=== PATIENT | female | born 1985 | race African-American/Black ===

== ENCOUNTER 2024-09-15 05:56 | Observation (INO) | payer BC, OTHER ==
[2024-09-14 10:17] VITALS: BMI 25.4
[2024-09-15 06:34] LABS: Hematocrit 31.6 % (34.9-44.5); Hemoglobin 10.7 g/dL (12.0-15.5); Mean Corpuscular HGB CONC 33.9 g/dL (32.0-36.0); Mean Corpuscular Hemoglobin 29.2 pg (27.0-33.0); Mean Corpuscular Volume 86.3 fL (81.6-98.3); Mean Platelet Volume 11.7 fL (7.4-10.4); Platelet Count 298 10x3/uL (150-450); RBC Distribution Width 12.8 % (11.5-14.5); Red Blood Cell (RBC) Count 3.66 10x6/uL (3.90-5.03); White Blood Cell (WBC) Count 9.1 10x3/uL (3.5-10.5)
[2024-09-15 06:43] LABS: BHCG - Serum Negative (NEGATIVE); Pregs Control Background? CLEAR/WHITE (CLR/WHITE); Pregs Control Bar Appear? YES (CONTROL BAR)
[2024-09-15] MEDS ORDERED: Bupivacaine HCl 0.5%/Epinephrine 1:200,000/PF 30 ml Vial ONE (06:55)
[2024-09-15] MEDS ORDERED: CEFAZOLIN 2 GM VIAL ONE (06:56)
[2024-09-15] MEDS ORDERED: PROPOFOL 20 ML ONE (07:09)
[2024-09-15] MEDS ORDERED: Rocuronium Bromide 10 MG/ML (10ML VIAL) ONE (07:09)
[2024-09-15] MEDS ORDERED: fentaNYL 50 mcg/mL 1 mL Vial ONE ×3 (07:09→10:10)
[2024-09-15] MEDS ORDERED: Lidocaine 1% PF 5 ML VIAL ONE (07:09)
[2024-09-15] MEDS ORDERED: Midazolam HCl 2 mg/2 ml Vial ONE (07:17)
[2024-09-15] MEDS ORDERED: Esmolol 100 MG/10 ML VIAL ONE (07:40)
[2024-09-15] MEDS ORDERED: Dexamethasone 20 MG/5 ML VIAL ONE (07:46)
[2024-09-15] MEDS ORDERED: Ondansetron PF 4 MG/2 ML Vial ONE (07:46)
[2024-09-15] MEDS ORDERED: Dexmedetomidine 200 MCG/2 ML VIAL ONE ×2 (08:09)
[2024-09-15] MEDS ORDERED: SUGAMMADEX SODIUM 200 MG/2 ML VIAL ONE (09:09)
[2024-09-15] MEDS ORDERED: Ondansetron PF 4 MG/2 ML Vial IVP PRN (10:51)
[2024-09-15] MEDS ORDERED: Simethicone Chewable 80 MG TAB PO PRN (10:51)
[2024-09-15] MEDS: Lactated Ringer's 1,000 ML IV SCH (11:19)
[2024-09-15] MEDS: Morphine 4 MG/ML VIAL SLOW IVP PRN (11:19)
[2024-09-15] MEDS: Ketorolac Tromethamine 30 MG (1 mL) VIAL IVP SCH (11:21)
[2024-09-15] MEDS: CEFAZOLIN 2 GM in Sodium Chloride 0.9% 100 ML IVPB SCH (15:35)
[2024-09-15] MEDS: HYDROcodone/Acetaminophen 7.5/325 mg Tablet PO PRN (15:35)
[2024-09-16 08:35] VITALS: BP 120/71; TEMP 98.1
== END 2024-09-16 09:50 | disposition home or self-care (01) ==
LOC: CSHSDC 05:56 → CSHPED 11:06
PROVIDERS: ADMIT Obstetrics & Gynecology; ATTEND Obstetrics & Gynecology
PROC: 0UT9FZZ Resection of Uterus, Via Natural or Artificial Opening With Percutaneous Endoscopic Assistance (ICD-10-PCS; principal; 2024-09-15)
PROC: 0UT7FZZ Resection of Bilateral Fallopian Tubes, Via Natural or Artificial Opening With Percutaneous Endoscopic Assistance (ICD-10-PCS; 2024-09-15)
PROC: 0UT2FZZ Resection of Bilateral Ovaries, Via Natural or Artificial Opening With Percutaneous Endoscopic Assistance (ICD-10-PCS; 2024-09-15)
DX: N83.202 Unspecified ovarian cyst, left side (principal); N73.6 Female pelvic peritoneal adhesions (postinfective); F41.9 Anxiety disorder, unspecified; F32.A Depression, unspecified; Z79.899 Other long term (current) drug therapy
CPT/HCPCS: 36415; 84703; 85027; 88307; J1100; J1885; J2250; J2272; J2405; J2704; J3010; J7120; S2900

== ENCOUNTER 2024-09-30 16:43 | Emergency (ER) | payer BC, OTHER ==
[2024-09-30 18:40] LABS: #Basophils 0.07 10x3/uL (0.0-0.2); #Eosinophils 0.21 10x3/uL (0.0-0.5); #Monocytes 0.91 10x3/uL (0.0-1.1); #Neutrophils 6.17 10x3/uL (1.5-8.4); %Basophils 0.7 % (0.0-2.0); %Lymphocytes 28.2 % (18.0-47.0); %Monocytes 8.8 % (0.0-10.0); %Neutrophils 59.6 % (40.0-75.0); Hematocrit 32.4 % (34.9-44.5); Hemoglobin 11.1 g/dL (12.0-15.5); Mean Corpuscular HGB CONC 34.3 g/dL (32.0-36.0); Mean Corpuscular Hemoglobin 29.3 pg (27.0-33.0); Mean Corpuscular Volume 85.5 fL (81.6-98.3); Mean Platelet Volume 11.9 fL (7.4-10.4); Platelet Count 266 10x3/uL (150-450); RBC Distribution Width 12.8 % (11.5-14.5); Red Blood Cell (RBC) Count 3.79 10x6/uL (3.90-5.03); White Blood Cell (WBC) Count 10.4 10x3/uL (3.5-10.5)
[2024-09-30 18:48] LABS: ALT (SGPT) 11 U/L (8-55); AST (SGOT) 14 U/L (5-34); Albumin 3.9 g/dL (3.5-5.0); Alkaline Phosphatase 74 U/L (40-110); Anion Gap 10 mmol/L (10-20); BUN (Urea Nitrogen) 8 mg/dL (7.0-18.7); Bilirubin, Total 0.5 mg/dL (0.2-1.2); Calc. Creatinine Clearance 0 mL/min (70-130); Calcium 9.5 mg/dL (7.8-10.44); Carbon Dioxide 29 mmol/L (22-29); Chloride 104 mmol/L (98-107); Estimated GFR 114; Glucose 90 mg/dL (70-105); Potassium 3.2 mmol/L (3.5-5.1); Protein, Total 7.9 g/dL (6.0-8.3); Sodium 140 mmol/L (136-145)
== END 2024-09-30 19:50 | disposition home or self-care (01) ==
LOC: CSHERS 16:43
DX: N99.820 Postprocedural hemorrhage of a genitourinary system organ or structure following a genitourinary system procedure (principal)
CPT/HCPCS: 36415; 76856; 80053; 85025; 86850; 86900; 86901